=== PATIENT | male | born 2000 | race American Indian/Alaskan Native ===

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

== ENCOUNTER 2020-04-01 11:59 | Emergency (ER) | payer MEDICAID ==
[2020-04-01 12:41] VITALS: BP 125/79
== END 2020-04-01 15:21 ==
LOC: ED 11:59
DX: M79.645 Pain in left finger(s) (principal); Z53.21 Procedure and treatment not carried out due to patient leaving prior to being seen by health care provider